=== PATIENT | male | born 1960 | race Caucasian/White ===

== ENCOUNTER 2023-07-07 02:25 | Day surgery (SDC) | payer OTHER, SELFPAY ==
[2023-06-29 14:20] VITALS: BMI 26.4
--- NOTE | 2023-07-03 10:15 | SUR.PREOP ---
Patient called regarding upcoming procedure. Message left on pt's voicemail regarding appointment times.
[2023-07-07 07:30] VITALS: BP 136/86; PULSE 71; RESP 18; TEMP 36.2; O2SAT 98
[2023-07-07] MEDS: LACTATED RINGERS 1,000 ML 150 ML IV CONT (07:42)
--- NOTE | 2023-07-07 07:55 | WPDANESEPPF ---
Anes - Initial Pre Proc Eval Procedure: Operation Date: 07/07/23 08:30 Proposed Procedures p Screening Colonoscopy - Yomi Adame MD Date/Time: 07/07/23 07:55 Surgeon: Yomi Adame MD Pre Op Diagnosis: neoplasm screening Patient Data Age: 63 Gender: M Height: 1.83 m Weight: 81.4 kg Last Vital Signs Temp 36.2 C L 07/07/23 07:30 Pulse 71 07/07/23 07:30 Resp 18 07/07/23 07:30 BP 136/86 07/07/23 07:30 Pulse Ox 98 07/07/23 07:30 O2 Del Method Room Air 07/07/23 07:30 Allergies Allergy/AdvReac Type Severity Reaction Status Date / Time No Known Allergies Allergy Unknown Verified 07/07/23 07:29 Home Medications Medication Instructions Recorded Confirmed Type blood-glucose meter (Blood Glucose #1 ea 01/04/20 03/27/23 Rx Monitoring kit) lancing device (lancing device #100 ea 01/04/20 03/27/23 Rx with lancets) blood sugar diagnostic (Blood #100 ea 01/05/20 03/27/23 Rx Glucose Test strips) levothyroxine 88 mcg tablet 88 mcg PO DAILY #90 tabs 03/20/23 06/29/23 Rx warfarin 5 mg tablet 5 mg PO .COMPLEX #90 tabs 06/14/23 07/07/23 Rx cholecalciferol (vitamin D3) 125 125 mcg PO DAILY 06/29/23 06/29/23 History mcg (5,000 unit) tablet (Vitamin D3) magnesium 200 mg tablet 200 mg PO DAILY 06/29/23 06/29/23 History Laboratory Tests 07/07/23 07:34 PT Pending INR Pending Patient hx anesthesia problems: none Family hx anesthesia problems: none Results Review: All pre-operative results and documents have been reviewed as part of the pre-operative evaluation. [facility] Past Medical History Medical History Acute renal insufficiency Diabetes mellitus Hypothyroidism Lupus anticoagulant disorder Mixed hyperlipidemia Warfarin anticoagulation Surgical History Surgical History H/O hernia repair History of appendectomy History of carpal tunnel surgery History of lumbar surgery Family History Family History Other Acute myocardial infarction Carcinoma of colon Family history of gout Family history of malignant neoplasm of gastrointestinal tract Social History Social History Smoking packs per day: 3 Smoking cigarettes per day: 60.0 Years smoked: 20 Smoking pack-years: 60.00 Smoking status: Former smoker Tobacco type: cigarettes Second hand tobacco smoke exposure: No Alcohol intake: current Substance use: never Substance use type: does not use Lack of Transportation: No Lack of Food: Never True Current Housing: I Have Housing Concerned About Future Housing: No Difficulty Paying Gas/Electric Bills: No Difficulty Paying for Meds: No Currently Unemployed: No Education: High School Diploma/GED Difficulty w/ Childcare or Family Care: No Living arrangements: with family Gender identity (if verbalized by the patient): Male Spiritual care concerns: No Agree to blood products: Yes Anes - Eval Final PreProcedure Day of Procedure 07/07/23 07:55 Patient weight: normal Heart: regular rate and rhythm Lungs: clear to auscultation Airway: Mallampati scale class II Neurological: alert and oriented Last oral intake: >/= 8 hours ASA classification: III Emergent: no Anesthetic plan: proceed Anesthesia type and monitoring: general GIVS and standard monitoring Results Review: All pre-operative results and documents have been reviewed as part of the pre-operative evaluation. Informed Consent: The patient's anesthetic plan and its attendant risks and benefits were discussed with the patient/family/POA. Questions were solicited and answers provided to the satisfaction of the patient/family/POA.
[2023-07-07 08:17] LABS: Prothrombin Time 13.9 Seconds (11.1-14.7)
--- NOTE | 2023-07-07 08:40 | PM.HPGS ---
History of Present Illness History of Present Illness Consent: Risks, benefits, and alternatives have been discussed and questions answered. Patient agrees to proceed with procedure. Chief complaint: neoplasm screening Narrative: Jameel Cohen is a 63 year old male Presents for colonoscopy. Patient's family history is significant his brother had colon cancer. And uncle has also had colon cancer.Patient reports that his current weight appetite and bowel movements are normal. Patient denies abdominal pain. He has had no bleeding. Family history noncontributory. Review of Systems Review of Systems: Review of systems noncontributory. [facility] Past Medical History Medical History Acute renal insufficiency Diabetes mellitus Hypothyroidism Lupus anticoagulant disorder Mixed hyperlipidemia Warfarin anticoagulation Surgical History Surgical History H/O hernia repair History of appendectomy History of carpal tunnel surgery History of lumbar surgery Family History Family History Other Acute myocardial infarction Carcinoma of colon Family history of gout Family history of malignant neoplasm of gastrointestinal tract Social History Social History Smoking packs per day: 3 Smoking cigarettes per day: 60.0 Years smoked: 20 Smoking pack-years: 60.00 Smoking status: Former smoker Tobacco type: cigarettes Second hand tobacco smoke exposure: No Alcohol intake: current Substance use: never Substance use type: does not use Lack of Transportation: No Lack of Food: Never True Current Housing: I Have Housing Concerned About Future Housing: No Difficulty Paying Gas/Electric Bills: No Difficulty Paying for Meds: No Currently Unemployed: No Education: High School Diploma/GED Difficulty w/ Childcare or Family Care: No Living arrangements: with family Gender identity (if verbalized by the patient): Male Spiritual care concerns: No Agree to blood products: Yes Meds Home Medications and Allergies Home Medications Medication Instructions Recorded Confirmed Type blood-glucose meter (Blood Glucose #1 ea 01/04/20 03/27/23 Rx Monitoring kit) lancing device (lancing device #100 ea 01/04/20 03/27/23 Rx with lancets) blood sugar diagnostic (Blood #100 ea 01/05/20 03/27/23 Rx Glucose Test strips) levothyroxine 88 mcg tablet 88 mcg PO DAILY #90 tabs 03/20/23 06/29/23 Rx warfarin 5 mg tablet 5 mg PO .COMPLEX #90 tabs 06/14/23 07/07/23 Rx cholecalciferol (vitamin D3) 125 125 mcg PO DAILY 06/29/23 06/29/23 History mcg (5,000 unit) tablet (Vitamin D3) magnesium 200 mg tablet 200 mg PO DAILY 06/29/23 06/29/23 History Allergies Allergy/AdvReac Type Severity Reaction Status Date / Time No Known Allergies Allergy Unknown Verified 07/07/23 07:29 Vital Signs Vital Signs - 24 hr 07/07/23 07:30 Temperature 97.2 F L Pulse Rate 71 Respiratory Rate 18 Blood Pressure 136/86 Pulse Oximetry 98 Oxygen Delivery Room Air Exam Narrative: Physical exam reveals patient to be alert. Vital signs stable. HEENT exam is unremarkable. Patient is anicteric. Lungs are clear to auscultation and percussion. Heart is without murmur or extra sounds. Abdomen bowel sounds are present soft nontender with no organomegaly. Digital external rectal exam normal. Assessment and Plan Assessment and plan (1) Family hx of colon cancer: Code(s): Z80.0 - Family history of malignant neoplasm of digestive organs Status: Acute Assessment and Plan: Patient's brother and uncle have had colon cancer. Plan for surveillance colonoscopy now and consider this a 5 year intervals.
[2023-07-07 09:14] VITALS: BP 104/66; PULSE 68; RESP 22; O2SAT 99
[2023-07-07 09:24] VITALS: BP 98/62; PULSE 72; RESP 16; O2SAT 98
[2023-07-07 09:34] VITALS: BP 113/66; PULSE 70; RESP 20; O2SAT 99
== END 2023-07-07 09:37 | disposition home or self-care (01) ==
PROVIDERS: PCP Family Medicine; Visit Provider Internal Medicine Gastroenterology
PROC: 0DJD8ZZ Inspection of Lower Intestinal Tract, Via Natural or Artificial Opening Endoscopic (ICD-10-PCS; CPT 45378; principal; 2023-07-07 08:30)
DX: Z12.11 Encounter for screening for malignant neoplasm of colon (principal); K64.8 Other hemorrhoids; Z80.0 Family history of malignant neoplasm of digestive organs; E78.2 Mixed hyperlipidemia; E11.9 Type 2 diabetes mellitus without complications; E03.9 Hypothyroidism, unspecified; D68.62 Lupus anticoagulant syndrome; Z79.01 Long term (current) use of anticoagulants; Z87.891 Personal history of nicotine dependence
CPT/HCPCS: 45378; 36415; 85610; J2704; J7120